=== PATIENT | female | born 1970 | race Caucasian/White ===

== ENCOUNTER 2017-05-08 23:01 | Inpatient (IN) | payer MEDICARE, OTHER ==
[~2017-05-08] VITALS: Ht 162.6 cm; Wt 80.5 kg
[2017-05-08 23:08] VITALS: BP 133/80; PULSE 70; RESP 16; TEMP 98; O2SAT 99
[2017-05-08] MEDS ORDERED: COUM5TAB PO (23:25)
[2017-05-08] MEDS ORDERED: MORP1TAB25 PO (23:25)
[2017-05-08] MEDS ORDERED: XANA2TAB2 PO (23:25)
--- NOTE | 2017-05-08 23:33 | PD ---
HPI Chief Complaint: Psychiatric Symptoms Time Seen by Provider: 23:16 Travel History International Travel<30 days: No Contact w/Intl Traveler<30days: No Traveled to known affect area: No History of Present Illness HPI 46-year-old female states she rented a [employer] and was coming down to see her father. She states she did not realize she had google maps on and that was a voice that she was hearing whenever she stopped to ask for directions and said that she was hearing voices. She now presents as a Morel act from [facility] as they did not have availability. She states she had once been Morel acted when she had too many wine spritzers. She denies any other concurrent complaints at this time but history is limited from patient. PFSH Past Medical History Hx Anticoagulant Therapy: Yes (coumadin) Depression: Yes Cerebrovascular Accident: Yes (2007) Fibromyalgia: Yes Immunizations Current: Yes Tetanus Vaccination: < 5 Years Influenza Vaccination: Yes ?: Not Past Surgical History Hysterectomy: Yes Social History Alcohol Use: No Tobacco Use: Yes (03/10 PPD) Substance Use: No Allergies-Medications (Allergen,Severity, Reaction): Coded Allergies: No Known Drug Allergies (Verified Allergy, Unknown, 05/08/17) Reported Meds & Prescriptions Reported Meds & Active Scripts Active Reported Xanax (Alprazolam) 2 Mg Tab 5 Mg PO DAILY PRN Morphine ER (Morphine Sulfate) 30 Mg Tab 30 Mg PO BID Coumadin (Warfarin) 5 Mg Tab 5 Mg PO DAILY Review of Systems Except as stated in HPI: all other systems reviewed are Neg Physical Exam Narrative GENERAL: 46-year-old female in no apparent distress SKIN: Focused skin assessment warm/dry. HEAD: Atraumatic. Normocephalic. EYES: Pupils equal and round. No scleral icterus. No injection or drainage. ENT: No nasal bleeding or discharge. Mucous membranes pink and moist. NECK: Trachea midline. No JVD. CARDIOVASCULAR: Regular rate and rhythm. RESPIRATORY: No accessory muscle use. No increased effort GASTROINTESTINAL: Abdomen soft, non-tender, nondistended. MUSCULOSKELETAL: No obvious deformities. NEUROLOGICAL: Awake and alert. No obvious cranial nerve deficits. Motor grossly within normal limits. Normal speech. Data Data Last Documented VS Vital Signs Date Time Temp Pulse Resp B/P (MAP) Pulse Ox O2 Delivery O2 Flow Rate FiO2 3/2/18 23:08 98.0 70 16 133/80 (97) 99 Orders Orders Complete Blood Count With Diff (05/08/17 23:16) Comprehensive Metabolic Panel (05/08/17 23:16) Psych Screen (05/08/17 23:16) Drug Screen, Random Urine (05/08/17 23:16) Alcohol (Ethanol) (05/08/17 23:16) Prothrombin Time / Inr (Pt) (05/08/17 23:29) Ct Brain W/O Iv Contrast(Rout) (05/08/17 ) Labs Laboratory Tests Test 05/08/17 23:45 White Blood Count 7.5 TH/MM3 Red Blood Count 4.70 MIL/MM3 Hemoglobin 13.8 GM/DL Hematocrit 40.4 % Mean Corpuscular Volume 86.0 FL Mean Corpuscular Hemoglobin 29.3 PG Mean Corpuscular Hemoglobin Concent 34.1 % Red Cell Distribution Width 14.1 % Platelet Count 237 TH/MM3 Mean Platelet Volume 6.6 FL Neutrophils (%) (Auto) 53.7 % Lymphocytes (%) (Auto) 29.9 % Monocytes (%) (Auto) 9.2 % Eosinophils (%) (Auto) 6.2 % Basophils (%) (Auto) 1.0 % Neutrophils # (Auto) 4.0 TH/MM3 Lymphocytes # (Auto) 2.2 TH/MM3 Monocytes # (Auto) 0.7 TH/MM3 Eosinophils # (Auto) 0.5 TH/MM3 Basophils # (Auto) 0.1 TH/MM3 CBC Comment DIFF FINAL Differential Comment Prothrombin Time 9.9 SEC Prothromb Time International Ratio 1.0 RATIO Blood Urea Nitrogen 10 MG/DL Creatinine 0.70 MG/DL Random Glucose 95 MG/DL Total Protein 6.9 GM/DL Albumin 3.7 GM/DL Calcium Level 8.5 MG/DL Alkaline Phosphatase 89 U/L Aspartate Amino Transf (AST/SGOT) 16 U/L Alanine Aminotransferase (ALT/SGPT) 18 U/L Total Bilirubin 0.2 MG/DL Sodium Level 139 MEQ/L Potassium Level 3.6 MEQ/L Chloride Level 104 MEQ/L Carbon Dioxide Level 29.5 MEQ/L Anion Gap 6 MEQ/L Estimat Glomerular Filtration Rate 90 ML/MIN Urine Opiates Screen POS Urine Barbiturates Screen NEG Urine Amphetamines Screen POS Urine Benzodiazepines Screen POS Urine Cocaine Screen NEG Urine Cannabinoids Screen POS Ethyl Alcohol Level LESS THAN 3 MG/DL MDM Medical Decision Making Medical Screen Exam Complete: Yes Emergency Medical Condition: Yes Medical Record Reviewed: Yes (Past history confirmed) Interpretation(s) CBC & BMP Diagram 05/08/17 23:45 Total Protein 6.9, Albumin 3.7, Calcium Level 8.5, Alkaline Phosphatase 89, Aspartate Amino Transf (AST/SGOT) 16, Alanine Aminotransferase (ALT/SGPT) 18, Total Bilirubin 0.2 ct brain no acute Differential Diagnosis Electrolyte abnormality, auditory hallucinations, alcohol intoxication Narrative Course We will check blood work and CT brain for clearance and reevaluate ed workup no emergent, multiple positives noted on urine drug screen, medically cleared Diagnosis Primary Impression: Auditory hallucinations Tosin Hardin MD May 08, 2017 23:33
[2017-05-09 00:02] LABS: BASOPHIL # 0.1 TH/MM3 (0-0.2); EOSINOPHIL # 0.5 TH/MM3 (0-0.4); EOSINOPHIL % 6.2 % (0.0-4.0); HEMATOCRIT 40.4 % (35.0-46.0); HEMOGLOBIN 13.8 GM/DL (11.6-15.3); LYMPH % 29.9 % (9.0-44.0); LYMPHOCYTE # 2.2 TH/MM3 (1.0-4.8); MEAN CORPUSCULAR HEMOGLOBIN 29.3 PG (27.0-34.0); MEAN CORPUSCULAR HGB CONC 34.1 % (32.0-36.0); MEAN PLATELET VOLUME 6.6 FL (7.0-11.0); MONO % 9.2 % (0.0-8.0); MONOCYTE # 0.7 TH/MM3 (0-0.9); NEUT % 53.7 % (16.0-70.0); PLATELET COUNT 237 TH/MM3 (150-450); RED CELL DISTRIBUTION WIDTH 14.1 % (11.6-17.2); WHITE BLOOD COUNT 7.5 TH/MM3 (4.0-11.0)
[2017-05-09 00:08] LABS: PROTHROMBIN TIME - PATIENT 9.9 SEC (9.8-11.6)
[2017-05-09 00:21] LABS: ALBUMIN 3.7 GM/DL (3.4-5.0); AST (GOT) 16 U/L (15-37); BICARBONATE 29.5 MEQ/L (21.0-32.0); BLOOD UREA NITROGEN 10 MG/DL (7-18); CALCIUM 8.5 MG/DL (8.5-10.1); CHLORIDE 104 MEQ/L (98-107); GLOMERULAR FILTRATION RATE 90 ML/MIN (>89); GLUCOSE,RANDOM 95 MG/DL (74-106); SODIUM (NA) 139 MEQ/L (136-145)
[2017-05-09 00:22] LABS: ALT (GPT) 18 U/L (10-53)
[2017-05-09 00:25] LABS: ALKALINE PHOSPHATASE 89 U/L (45-117); TOTAL BILIRUBIN ADULT 0.2 MG/DL (0.2-1.0); TOTAL PROTEIN 6.9 GM/DL (6.4-8.2)
--- NOTE | 2017-05-09 00:45 | RADRPT ---
EXAM DATE/TIME: 05/09/2017 00:17 [place] COMPARISON: No previous studies available for comparison. INDICATIONS : Altered mental status. RADIATION DOSE: 56.35 CTDIvol (mGy) MEDICAL HISTORY : Cerebrovascular disease. Stroke SURGICAL HISTORY : Hysterectomy. ENCOUNTER: Initial ACUITY: 1 day PAIN SCALE: 0/10 LOCATION: cranial TECHNIQUE: Multiple contiguous axial images were obtained of the head. Using automated exposure control and adj ustment of the mA and/or kV according to patient size, radiation dose was kept as low as reasonably a chievable to obtain optimal diagnostic quality images. DICOM format image data is available electro nically for review and comparison. FINDINGS: Mild tenting of the head in the gantry creates asymmetry. CEREBRUM: The ventricles are normal for age. No evidence of midline shift, mass lesion, hemorrhage or acute in farction. No extra-axial fluid collections are seen. POSTERIOR FOSSA: The cerebellum and brainstem are intact. The 4th ventricle is midline. The cerebellopontine angle i s unremarkable. EXTRACRANIAL: The visualized portion of the orbits is intact. Concentric mucosal thickening in the right sphenoid sinus. SKULL: The calvaria is intact. No evidence of skull fracture. CONCLUSION: 1. No acute findings in the brain. 2. Right sphenoid sinus disease. Rupert Retana MD on May 09, 2017 at 0:43 Board Certified Radiologist. This report was verified electronically.
[2017-05-09 02:28] VITALS: BP 124/85; PULSE 60; RESP 18; TEMP 98.1; O2SAT 100
[2017-05-09 06:00] VITALS: BP 126/76; PULSE 82; RESP 18; TEMP 99; O2SAT 98
[2017-05-09] MEDS ORDERED: MAGNESIUM HYDROXIDE SUSP 30 ML CUP PO PRN (09:30)
[2017-05-09] MEDS ORDERED: LORazepam 2 MG/ML VIAL IV PUSH PRN ×4 (09:30→10:45)
[2017-05-09] MEDS ORDERED: LORazepam 2 MG/ML VIAL IM PRN ×2 (09:30)
[2017-05-09] MEDS ORDERED: FLUMAZENIL 0.5 MG/5 ML VIAL IV PUSH PRN (09:30)
[2017-05-09] MEDS ORDERED: LORazepam 0.5 MG TAB PO PRN (09:30)
[2017-05-09] MEDS ORDERED: LORazepam 1 MG TAB PO PRN ×2 (09:30)
[2017-05-09] MEDS: ESCITALOPRAM OXALATE 10 MG TAB PO SCH ×2 (11:00→13:59)
--- NOTE | 2017-05-09 13:18 | HHI.HP ---
Provisional Diagnosis Admission Date May 09, 2017 at 09:29 [place] I. Major depressive disorder, recurrent, severe, without psychosis, generalized anxiety disorder, cannabis, benzodiazepines, amphetamines disorder [place] II. Unspecified personality disorder [place] III. Fibromyalgia, COPD, chronic pain [place] IV. Lack of family social support [place] V. 40 Certification of Person's Competence To Provide Express and Informed Consent I have personally examined Amy Romano , a person being served at [facility] on, May 09, 2017 13:06. Express and informed consent means consent voluntarily given in writing, by a competent person, after sufficient explanation and disclosure of the subject matter involved to enable the person to make a knowing and willful decision without any element of force, fraud, deceit, duress, or other form of constraint or coercion. This person is 18 years of age or older, is not now known to be incompetent to consent to treatment with a guardian advocate, and does not have a health care surrogate or proxy currently making medical treatment decisions. I have found this person to be one of the following: [] Competent to provide express and informed consent, as defined above, for voluntary admission to this facility and is competent to provide express and informed consent for treatment. He/she has the consistent capacity to make well reasoned, willful, and knowing decisions concerning his or her medical or mental health treatment. The person fully and consistently understands the purpose of the admission for examination/placement and is fully capable of personally exercising all rights assured [place] Incompetent to provide express and informed consent to voluntary admission, and this is incompetent to provide express and informed consent to treatment. The person must be transferred to involuntary status and a petition for a guardian advocate filed with the Circuit Court. [x] Refusing to provide express and informed consent to voluntary admission but is competent to provide express and informed consent for treatment. The person must be discharged or transferred to involuntary status. Form shall be completed within 24 hours of a person's arrival at the receiving facility and filed in the clinical record of each person: 1. Admitted on a voluntary basis 2. Permitted to provide express and informed consent to his/her own treatment 3. Allowed to transfer from involuntary to voluntary status 4. Prior to permitting a person to consent to his or her own treatment after having been previously found incompetent to consent to treatment. History of Present Illness Capacity: Has Capacity HPI The patient is a 46-year-old woman, domiciled in [place] alone, single, unemployed, first time at [place], with psychiatric history of depression, anxiety, no previous psychiatric hospitalizations, she denies previous suicidal attempts, she has established outpatient care with Dr. Salazar in [place], she is on Abilify 5 mg, Xanax 2 mg 3 times a day, Celexa 20 mg, she has medical history of stroke, chronic pain, fibromyalgia. She says that she lives in [place], and she rented a [employer] and was coming down to see her father. She states she did not realize she had google maps on and that was a voice that she was hearing whenever she stopped to ask for directions and said that she was hearing voices. She now presents as a Morel act from [facility] as they did not have availability. She states she had once been Morel acted when she had too many wine spritzers. On psychiatric evaluation the patient is kind of a sleeping, sedated, superficially cooperative. The patient says that in the last days she has been very depressed , hopeless, helpless, feeling that there is nothing to live in his life, and 2 days ago she just left her house to come to say bye-bye to her father in [place]. Patient says that she came running away from her disgrace. She says that she has multiple economical problems, interpersonal issues with friends and family members, and also in employed she feels that psychiatric medications are not helping her. At this moment the patient denies suicidal and homicidal ideation, she denies visual and auditory hallucinations, but she seems to be internally preoccupied, at times even disorganized and ambivalent. The patient reports the use of marijuana, denies alcohol, she says that her benzodiazepines are fully prescribed. However she could not explain her positive toxicology for amphetamines. Review of Systems Constitutional: DENIES: Diaphoretic episodes, Fatigue, Fever, Weight gain, Weight loss, Chills, Dizziness, Change in appetite, Night Sweats Endocrine: DENIES: Abnorml menstrual pattern, Heat/cold intolerance, Polydipsia , Polyuria, Polyphagia Eyes: DENIES: Blurred vision, Diplopia, Eye inflammation, Eye pain, Vision loss , Photosensitivity, Double Vision Ears, nose, mouth, throat: DENIES: Tinnitus, Hearing loss, Vertigo, Nasal discharge, Oral lesions, Throat pain, Hoarseness, Ear Pain, Running Nose, Epistaxis, Sinus Pain, Toothache, Odynophagia Respiratory: DENIES: Apneas, Cough, Snoring, Wheezing, Hemoptysis, Sputum production, Shortness of breath Cardiovascular: DENIES: Chest pain, Palpitations, Syncope, Dyspnea on Exertion , PND, Lower Extremity Edema, Orthopnea, Claudication Gastrointestinal: DENIES: Abdominal pain, Black stools, Bloody stools, Constipation, Diarrhea, Nausea, Vomiting, Difficulty Swallowing, Anorexia Genitourinary: DENIES: Abnormal vaginal bleeding, Dysmenorrhea, Dyspareunia, Sexual dysfunction, Urinary frequency, Urinary incontinence, Urgency, Hematuria , Dysuria, Nocturia, Vaginal discharge Musculoskeletal: DENIES: Joint pain, Muscle aches, Stiffness, Joint Swelling, Back pain, Neck pain Integumentary: DENIES: Abnormal pigmentation, Pruritus, Rash, Nail changes, Breast masses, Breast skin changes, Nipple discharge Immunologic/allergic: DENIES: Eczema, Urticaria Psychiatric: COMPLAINS OF: Confusion, Depression, DENIES: Anxiety, Mood changes , Hallucinations, Agitation, Suicidal Ideation, Homicidal Ideation, Delusions Past Psych History Violence risk - self (6 mos) Increased Substance Abuse History Drugs/Alcohol past 12 months Cannabis and amphetamines use disorder Past Family Social History Coded Allergies: No Known Drug Allergies (Verified Allergy, Unknown, 05/08/17) Reported Medications Alprazolam (Xanax) 2 Mg Tab, 5 MG PO DAILY Y for ANXIETY, TAB 0 Refills 05/08/17 Morphine ER (Morphine ER) 30 Mg Tab, 30 MG PO BID for Pain Management, TAB 0 Refills 05/08/17 Warfarin (Coumadin) 5 Mg Tab, 5 MG PO DAILY for Blood Clot Prevention, #30 TAB 0 Refills 05/08/17 Current Medications Medications (Trade) Dose Ordered Sig/Noel Route Start Time Stop Time Status Last Admin (Ativan) 1 mg Q6H PRN PO 05/09/17 09:30 (Ativan Inj) 1 mg Q6H PRN IM 05/09/17 09:30 (Tylenol) 650 mg Q4H PRN PO 05/09/17 09:30 (Milk Of Magnesia Liq) 30 ml DAILY PRN PO 05/09/17 09:30 (Mag-Al Plus Susp Liq) 30 ml Q6H PRN PO 05/09/17 09:30 (Habitrol 21 Mg Patch.24 Hr) 1 patch DAILY T-DERMAL 05/10/17 09:00 (Romazicon Inj) 0.2 mg Q1M PRN IV PUSH 05/09/17 09:30 (Ativan) 1 mg Q4H PRN PO 05/09/17 09:30 (Ativan Inj) 1 mg Q4H PRN IV PUSH 05/09/17 09:30 (Ativan) 2 mg Q2H PRN PO 05/09/17 09:30 (Ativan Inj) 2 mg Q2H PRN IV PUSH 05/09/17 09:30 (Ativan Inj) 2 mg Q1H PRN IV PUSH 05/09/17 09:30 (Ativan Inj) 2 mg Q15M PRN IV PUSH 05/09/17 10:45 (Abilify) 5 mg DAILY PO 05/10/17 09:00 (Lexapro) 10 mg DAILY PO 05/09/17 11:00 Miscellaneous Information 1 HS T-DERMAL 05/09/17 21:00 Family Psych History No family psychiatric history Social History Patient was born and raised in [facility], she lives in [place], she lives alone, she is single, no kids that live with his father, unemployed, Patient's Strengths (min. 2) Verbal communication, outpatient psychiatric care Physical Exam No withdrawal, no EPS, no stiffness Vital Signs Vital Signs Date Time Temp Pulse Resp B/P (MAP) Pulse Ox O2 Delivery O2 Flow Rate FiO2 05/09/17 06:00 99.0 82 18 126/76 (93) 98 Room Air Lab Results Test 05/08/17 23:45 White Blood Count 7.5 TH/MM3 Red Blood Count 4.70 MIL/MM3 Hemoglobin 13.8 GM/DL Hematocrit 40.4 % Mean Corpuscular Volume 86.0 FL Mean Corpuscular Hemoglobin 29.3 PG Mean Corpuscular Hemoglobin Concent 34.1 % Red Cell Distribution Width 14.1 % Platelet Count 237 TH/MM3 Mean Platelet Volume 6.6 FL Neutrophils (%) (Auto) 53.7 % Lymphocytes (%) (Auto) 29.9 % Monocytes (%) (Auto) 9.2 % Eosinophils (%) (Auto) 6.2 % Basophils (%) (Auto) 1.0 % Neutrophils # (Auto) 4.0 TH/MM3 Lymphocytes # (Auto) 2.2 TH/MM3 Monocytes # (Auto) 0.7 TH/MM3 Eosinophils # (Auto) 0.5 TH/MM3 Basophils # (Auto) 0.1 TH/MM3 CBC Comment DIFF FINAL Differential Comment Prothrombin Time 9.9 SEC Prothromb Time International Ratio 1.0 RATIO Blood Urea Nitrogen 10 MG/DL Creatinine 0.70 MG/DL Random Glucose 95 MG/DL Total Protein 6.9 GM/DL Albumin 3.7 GM/DL Calcium Level 8.5 MG/DL Alkaline Phosphatase 89 U/L Aspartate Amino Transf (AST/SGOT) 16 U/L Alanine Aminotransferase (ALT/SGPT) 18 U/L Total Bilirubin 0.2 MG/DL Sodium Level 139 MEQ/L Potassium Level 3.6 MEQ/L Chloride Level 104 MEQ/L Carbon Dioxide Level 29.5 MEQ/L Anion Gap 6 MEQ/L Estimat Glomerular Filtration Rate 90 ML/MIN Urine Opiates Screen POS Urine Barbiturates Screen NEG Urine Amphetamines Screen POS Urine Benzodiazepines Screen POS Urine Cocaine Screen NEG Urine Cannabinoids Screen POS Ethyl Alcohol Level LESS THAN 3 MG/DL Mental Status Examination Appearance: Appropriate Consciousness: Alert Orientation: x4 Motor Activity: Normal gait Speech: Unremarkable Language: Adequate Fund of Knowledge: Adequate Attention and Concentration: Adequate Memory: Unremarkable Mood: Sad Affect: Sad Thought Process & Associations: Intact Thought Content: Appropriate Hallucination Type: None Delusion Type: None Suicidal Ideation: No Suicidal Plan: No Suicidal Intention: No Homicidal Ideation: No Homicidal Plan: No Homicidal Intention: No Insight: Poor Judgment: Poor Assessment & Plan Problem List: (1) Major depressive disorder, recurrent ICD Codes: F33.9 - Major depressive disorder, recurrent, unspecified Assessment & Plan: On psychiatric evaluation today the patient seems to be objectively depressed, she reports about 2 weeks of hopelessness, helplessness, worthlessness, generalized pessimism, frequent interpersonal problems, mood swings, to the point that she left her town at her house to come to [facility] to say bye-bye to her father. The patient is arrested in a close area by the police due to her erratic behavior in her car. Patient seems to be unpredictable, poorly reliable, at times incoherent. He is possible that this mention behavior could be related with amphetamine/benzodiazepine/cannabis/ opiate intoxication, but a major psychiatric illness decompensation needs to be carefully rule out. There is no collateral information at this moment. Patient is a high risk of danger to self and others, she denies to be admitted in psychiatry for stabilization and safety. I would restart her outpatient psychotropics, Abilify 5 mg, Lexapro 20 mg for depression, but I will be careful with benzodiazepines/amphetamines, hold to the moment. Collateral from her psychiatrist would be very important. Social work as intervention for psychosocial assessment, collateral information, individual and group therapies , to coordinating a safe discharge. Also order [facility] protocol. Assessment & Plan Estimated LOS: days Saleem Higuera MD May 09, 2017 13:18
[2017-05-09] MEDS: ALUMINUM/MAGNESIUM/SIMETH 30 ML CUP PO PRN ×2 (13:59→23:10)
[2017-05-09] MEDS: ACETAMINOPHEN 325 MG TAB PO PRN (16:15)
[2017-05-09 17:08] VITALS: BP 146/86; PULSE 78; RESP 18; TEMP 98
[2017-05-09 18:16] VITALS: BP 122/74; PULSE 88; RESP 20; TEMP 97.9; O2SAT 99
[2017-05-09] MEDS: LORazepam 2 MG TAB PO PRN (19:34)
[2017-05-09] MEDS: REMOVE OLD NICODERM (NICOTINE) PATCH T-DERMAL SCH (21:00)
[2017-05-09 23:37] VITALS: BP 169/92; PULSE 60; RESP 18; TEMP 98.4
[2017-05-10 04:52] VITALS: BP 180/94; PULSE 54; RESP 16; TEMP 98.1; O2SAT 98
[2017-05-10] MEDS: NICOTINE 21 MG/24 HR PATCH T-DERMAL SCH (09:00)
[2017-05-10] MEDS: LORazepam 2 MG TAB PO PRN ×3 (09:41→21:06)
[2017-05-10] MEDS: ACETAMINOPHEN 325 MG TAB PO PRN ×2 (10:20→21:05)
[2017-05-10 11:18] LABS: BICARBONATE 23.7 MEQ/L (21.0-32.0); BLOOD UREA NITROGEN 9 MG/DL (7-18); CALCIUM 8.7 MG/DL (8.5-10.1); CHLORIDE 109 MEQ/L (98-107); CHOLESTEROL 221 MG/DL (120-200); CREATININE 0.56 MG/DL (0.50-1.00); GLOMERULAR FILTRATION RATE 117 ML/MIN (>89); GLUCOSE,RANDOM 135 MG/DL (74-106); SODIUM (NA) 141 MEQ/L (136-145); TRIGLYCERIDES 74 MG/DL (42-150)
[2017-05-10 11:20] LABS: CHOLESTEROL/ HDL RATIO 3.56 RATIO; LDL CHOLESTEROL 144 MG/DL (0-99)
--- NOTE | 2017-05-10 11:28 | HHI.PYPN ---
Subjective Remarks This is a request for second opinion. Admission note was reviewed and I agree with its contents. Patient is irritable and difficult to engage. She continues to go through benzo and opiate withdrawal. She is on the CIWA protocol and has been scoring a 13. She has been anxious with elevated blood pressure. There are no tremors, nausea or vomiting, or visual hallucinations. There is no confusion patient is alert and oriented 4, patient has no physical complaints. Patient says she was taking Xanax 8 mg daily and oxycodone 30 mg by mouth 4 times a day, claiming that this was prescribed to her. She denies suicidal or homicidal ideation intent or plan. Potassium low this morning Mental Status Examination Appearance: Appropriate Consciousness: Alert Orientation: x4 Motor Activity: Normal gait Speech: Unremarkable Language: Adequate Fund of Knowledge: Adequate Attention and Concentration: Adequate Memory: Unremarkable Mood: Sad, Oppositional Affect: Irritable Thought Process & Associations: Intact Thought Content: Appropriate Hallucination Type: None Delusion Type: None Suicidal Ideation: No Suicidal Plan: No Suicidal Intention: No Homicidal Ideation: No Homicidal Plan: No Homicidal Intention: No Insight: Poor Judgment: Poor Results Labs Test 05/10/17 10:30 Blood Urea Nitrogen 9 MG/DL Creatinine 0.56 MG/DL Random Glucose 135 MG/DL Calcium Level 8.7 MG/DL Sodium Level 141 MEQ/L Potassium Level 3.1 MEQ/L Chloride Level 109 MEQ/L Carbon Dioxide Level 23.7 MEQ/L Anion Gap 8 MEQ/L Estimat Glomerular Filtration Rate 117 ML/MIN Triglycerides Level 74 MG/DL Cholesterol Level 221 MG/DL LDL Cholesterol 144 MG/DL HDL Cholesterol 62.0 MG/DL Cholesterol/HDL Ratio 3.56 RATIO Vitals/IOs Vital Signs Date Time Temp Pulse Resp B/P (MAP) Pulse Ox O2 Delivery O2 Flow Rate FiO2 05/10/17 04:52 98.1 54 16 180/94 (122) 98 05/09/17 06:00 Room Air Assessment & Plan Problem List: (1) Major depressive disorder, recurrent ICD Codes: F33.9 - Major depressive disorder, recurrent, unspecified Assessment & Plan Potassium 30 mEq now, patient to be seen by medicine later today. I agree with the first opinion to continue petition. Criteria include beside ideation before admission Justification for Cont. Inpt. Patient will decompensate in a less restrictive setting Ronald Colvin DO May 10, 2017 11:28
[2017-05-10] MEDS: ARIPiprazole 5 MG TAB PO SCH (11:40)
[2017-05-10] MEDS: ESCITALOPRAM OXALATE 10 MG TAB PO SCH (11:40)
[2017-05-10] MEDS ORDERED: POTASSIUM CHLORIDE 10 MEQ CONTROLLED RELEASE TAB PO ONE (12:00)
[2017-05-10 16:40] VITALS: BP 171/79; PULSE 64; RESP 18; TEMP 98; O2SAT 98
[2017-05-10] MEDS: REMOVE OLD NICODERM (NICOTINE) PATCH T-DERMAL SCH (21:00)
[2017-05-11 05:26] VITALS: BP 182/90; PULSE 64; RESP 18; TEMP 98; O2SAT 97
[2017-05-11] MEDS: LORazepam 2 MG TAB PO PRN (05:41)
[2017-05-11] MEDS: ACETAMINOPHEN 325 MG TAB PO PRN ×2 (05:42→11:42)
[2017-05-11] MEDS: ARIPiprazole 5 MG TAB PO SCH (08:52)
[2017-05-11] MEDS: ESCITALOPRAM OXALATE 10 MG TAB PO SCH (08:52)
[2017-05-11] MEDS: NICOTINE 21 MG/24 HR PATCH T-DERMAL SCH (08:53)
[2017-05-11] MEDS ORDERED: ESCI10TA PO (13:18)
[2017-05-11] MEDS ORDERED: ARIP1TAB11 PO (13:18)
--- NOTE | 2017-05-11 13:18 | HHI.DS ---
Psychiatry Discharge Summary Inpatient Psychiatric care?: Yes Advance Directive: No Reason Not Provided: declined Mental Health AdvanceDirective: No Health Care Proxy: No Admission Admission Date May 09, 2017 at 09:29 Admission Diagnosis: (1) Major depressive disorder, recurrent ICD Code: F33.9 - Major depressive disorder, recurrent, unspecified Brief History The patient is a 46-year-old woman, domiciled in [place] alone, single, unemployed, first time at [facility], with psychiatric history of depression, anxiety, no previous psychiatric hospitalizations, she denies previous suicidal attempts, she has established outpatient care with Dr. Salazar in [place], she is on Abilify 5 mg, Xanax 2 mg 3 times a day, Celexa 20 mg, she has medical history of stroke, chronic pain, fibromyalgia. She says that she lives in [place], and she rented a [employer] and was coming down to see her father. She states she did not realize she had google maps on and that was a voice that she was hearing whenever she stopped to ask for directions and said that she was hearing voices. She now presents as a [facility] act from [facility] as they did not have availability. She states she had once been Morel acted when she had too many wine spritzers. On psychiatric evaluation the patient is kind of a sleeping, sedated, superficially cooperative. The patient says that in the last days she has been very depressed , hopeless, helpless, feeling that there is nothing to live in his life, and 2 days ago she just left her house to come to say bye-bye to her father in [place]. Patient says that she came running away from her disgrace. She says that she has multiple economical problems, interpersonal issues with friends and family members, and also in employed she feels that psychiatric medications are not helping her. At this moment the patient denies suicidal and homicidal ideation, she denies visual and auditory hallucinations, but she seems to be internally preoccupied, at times even disorganized and ambivalent. The patient reports the use of marijuana, denies alcohol, she says that her benzodiazepines are fully prescribed. However she could not explain her positive toxicology for amphetamines. Tobacco Use In Past 30 Days: 5 or More Cigarettes/Day Alcohol Use: Never Hospital Course Patient was admitted to a locked, inpatient psychiatric unit. Appropriate precautions were in place throughout patient's hospital stay. Patient was seen and examined on the unit by psychiatry and also visited by counselor. Psychotropic medications were adjusted. Patient tolerated medications well without side effects. There was no evidence of any suicidality or homicidality while under observation on the inpatient unit. The patient remained in behavioral control and was medication compliant. On the day of discharge: Patient seen and examined with nurse. Chart reviewed. Case discussed with nursing staff. No behavioral issues noted overnight. Case discussed with counselor. Counselor has obtained collateral information from the patient's mother Barbara who reportedly has no concerns about patient being discharged home today. On my examination today, the patient is requesting discharge from the inpatient psychiatric unit today. She denies any suicidal or homicidal ideation , intent or plan on direct questioning and contracts for safety. I can elicit no depressive or hypomanic/manic symptoms presently. She denies any audiovisual hallucinations. I can elicit no delusional beliefs. There is no evidence of any impairment in reality construction. She reports that her drug of choice is pain pills and she can provide no explanation for the amphetamines in her urine. She denies any withdrawal symptoms presently. She denies a history of suicide attempts. She denies a family history of mental illness. She denies any access to guns or firearms. No side effects from medications. No physical complaints. Suicide and violence risk assessment on day of discharge both suggest lower imminent risk from mental illness as defined under Morel act, and the patient's level of function is adequate for outpatient care. The patient no longer meets criteria for involuntary psychiatric hospitalization. She is requesting discharge from the inpatient psychiatric unit today, and I have no basis to retain her over her objection. Patient will be discharged home today with psychiatric follow-up as arranged by counselor. Patient is also to follow-up with primary care. I have counseled the patient to abstain from substances of abuse and recommended that she pursue chemical dependency evaluation and treatment on an outpatient basis. I have in particular cautioned the patient against combining her benzodiazepines, reportedly prescribed to her, with opiates or alcohol given the concern for potentially life-threatening complications from these combinations. I have counseled the patient regarding warning signs for me to return to the psychiatric emergency room is part of the general safety plan. Results Blood Pressure 182 / 90 Vital Signs Date Time Temp Pulse Resp B/P (MAP) Pulse Ox O2 Delivery O2 Flow Rate FiO2 05/11/17 05:26 98.0 64 18 182/90 (120) 97 05/09/17 06:00 Room Air Laboratory Tests Test 05/08/17 23:45 05/10/17 10:30 05/10/17 15:35 Mean Platelet Volume 6.6 FL (7.0-11.0) Monocytes (%) (Auto) 9.2 % (0.0-8.0) Eosinophils (%) (Auto) 6.2 % (0.0-4.0) Eosinophils # (Auto) 0.5 TH/MM3 (0-0.4) Urine Opiates Screen POS (NEG) Urine Amphetamines Screen POS (NEG) Urine Benzodiazepines Screen POS (NEG) Urine Cannabinoids Screen POS (NEG) Random Glucose 135 MG/DL (74-106) Potassium Level 3.1 MEQ/L (3.5-5.1) 3.3 MEQ/L (3.5-5.1) Chloride Level 109 MEQ/L (98-107) Cholesterol Level 221 MG/DL (120-200) LDL Cholesterol 144 MG/DL (0-99) HDL Cholesterol 62.0 MG/DL (40.0-60.0) Laboratory Results Test 05/10/17 10:30 Cholesterol Level 221 MG/DL (120-200) HDL Cholesterol 62.0 MG/DL (40.0-60.0) LDL Cholesterol 144 MG/DL (0-99) Triglycerides Level 74 MG/DL (42-150) Summary of Procedures None done Imaging Last Impressions Head CT 05/08/17 0000 Signed Impressions: Service Date/Time: Tuesday, May 09, 2017 00:17 - CONCLUSION: 1. No acute findings in the brain. 2. Right sphenoid sinus disease. Rupert Retana MD Pending results at discharge: No Medications # of Antipsychotic meds at D/C: 1 Approp Antipsych med options 1 - Minimum of three failed multiple trials of monotherapy. 2 - Documented plan to taper to monotherapy due to previous use of multiple meds OR cross-taper in progress at D/C. 3 - Documentation of augmentation of Clozapine. 4 - Justification other than those listed in allowable values 1-3, document here : Discharge Discharge Date: May 11, 2017 Discharge Diagnosis: (1) Adjustment disorder, unspecified Diagnosis: Principal (resolved) ICD Code: F43.20 - Adjustment disorder, unspecified (2) Polysubstance abuse Diagnosis: Secondary (counseled to quit) ICD Code: F19.10 - Other psychoactive substance abuse, uncomplicated Pt Condition on Discharge: Stable Discharge Disposition: Discharge Home Discharge Instructions Diet Instructions: As Tolerated, No Restrictions Activities you can perform: Weight Bearing as Parth Scheduled Appointment: as per counselor's notes New Orders: MAGNESIUM (MG) - 2-3 Days POTASSIUM, SERUM (K) - 2-3 Days New Medications: Aripiprazole (Aripiprazole) 5 Mg Tab 5 MG PO DAILY for Mental Health for 10 Days, #10 TAB 2 Refills Escitalopram (Escitalopram) 10 Mg Tab 10 MG PO DAILY for Mental Health for 10 Days, #10 TAB 2 Refills Discontinued Medications: Alprazolam (Xanax) 2 Mg Tab 5 MG PO DAILY PRN for ANXIETY, TAB 0 Refills Morphine ER (Morphine ER) 30 Mg Tab 30 MG PO BID for Pain Management, TAB 0 Refills Discharge Time > 30 minutes Mental Status Examination Appearance: Appropriate Consciousness: Alert Orientation: x4 Motor Activity: Other (no hand tremor, no diaphoresis, no tongue fasciculations , no mydriasis, no other signs of GABAergic withdrawal. No signs of opiate withdrawal. No hand tremor, no dystonia, no dyskinesia. No other motor abnormalities noted.) Speech: Unremarkable Language: Adequate Fund of Knowledge: Adequate Attention and Concentration: Adequate Memory: Unremarkable Mood: Appropriate Affect: Appropriate Thought Process & Associations: Intact, Logical, Goal directed, Linear Thought Content: Appropriate Hallucination Type: None Delusion Type: None Suicidal Ideation: No Suicidal Plan: No Suicidal Intention: No Homicidal Ideation: No Homicidal Plan: No Homicidal Intention: No Mental Status Exam Remarks Insight and judgment are fair. Discharge/Advance Care Plan Health Problems: (1) Major depressive disorder, recurrent Goals to promote your health * To prevent worsening of your condition and complications * To maintain your health at the optimal level Directions to meet your goals Take your medications as prescribed Follow your dietary instruction Follow activity as directed Keep your appointments as scheduled Take your immunizations and boosters as scheduled If your symptoms worsen call your PCP, if no PCP go to Urgent Care Center or Emergency Room For 29/09 questions related to your inpatient stay or results of tests pending at discharge, please contact Dr. Dereje Thapa at Smoking is Dangerous to Your Health. Avoid second hand smoking Dereje Thapa MD May 11, 2017 13:18
[2017-05-11] MEDS ORDERED: POTASSIUM CHLORIDE 20 MEQ CONTROLLED RELEASE TAB PO ONE (14:00)
[2017-05-11 16:11] LABS: HEMOGLOBIN A1C 5.3 % (4.3-6.0)
== END 2017-05-11 14:45 | disposition home or self-care (01) | DRG 882 ==
LOC: NEPC 23:01 → NEDA 05-09 09:29 → H260 05-09 11:45
PROVIDERS: ADMIT Psychiatry & Neurology Psychiatry; ATTEND Psychiatry & Neurology Psychiatry
DX: F43.20 Adjustment disorder, unspecified (principal); F33.9 Major depressive disorder, recurrent, unspecified; R44.0 Auditory hallucinations; F19.239 Other psychoactive substance dependence with withdrawal, unspecified; F17.210 Nicotine dependence, cigarettes, uncomplicated; M79.7 Fibromyalgia; F12.90 Cannabis use, unspecified, uncomplicated; R03.0 Elevated blood-pressure reading, without diagnosis of hypertension; F41.9 Anxiety disorder, unspecified; Z86.73 Personal history of transient ischemic attack (TIA), and cerebral infarction without residual deficits
CPT/HCPCS: 70450; 80048; 80053; 80061; 80307; 83036; 84132; 85025; 85610; 99285; J2060